=== PATIENT | female | born 1960 | race Caucasian/White ===

== ENCOUNTER 2020-07-19 11:08 | Outpatient (CLI) | payer MEDICAID | END 2020-07-19 11:09 | disposition home or self-care (01) | LOC: LAB 11:08 | PROVIDERS: ATTEND Orthopaedic Surgery | DX: Z29.9 Encounter for prophylactic measures, unspecified (principal) | CPT/HCPCS: 85610 ==

== ENCOUNTER 2020-11-11 17:21 | Outpatient (CLI) | payer MEDICAID | END 2020-11-11 17:22 | disposition EMS.NT | LOC: EMS 17:21 | DX: R47.02 Dysphasia (principal) ==